=== PATIENT | male | born 1960 | race Caucasian/White ===

== ENCOUNTER → 2018-03-19 | Outpatient (CLI) | payer OTHER ==
[~2018-03-19] MED LIST: PERCOCET 5/3251 TAB PO; TAMS0.4C PO
== END | disposition home or self-care (01) ==
LOC: RAD 11:49
DX: I10 Essential (primary) hypertension (principal)

== ENCOUNTER 2018-03-27 05:15 | Day surgery (SDC) | payer OTHER | END 2018-03-27 14:30 | disposition home or self-care (01) | LOC: CIR.AMB 05:15 | DX: M75.121 Complete rotator cuff tear or rupture of right shoulder, not specified as traumatic (principal) ==

== ENCOUNTER 2018-11-26 12:15 | Emergency (ER) | payer OTHER ==
[~2018-11-26] VITALS: Ht 172.7 cm; Wt 90.7 kg
[2018-11-26] MEDS ORDERED: OSEL75CA PO (15:49)
[2018-11-26] MEDS ORDERED: TUSSI PRES-B L120 M1 PO (15:49)
== END 2018-11-26 15:53 | disposition home or self-care (01) ==
LOC: ER 12:15
DX: B34.9 Viral infection, unspecified (principal)